=== PATIENT | female | born 1950 | race Caucasian/White ===

== ENCOUNTER 2016-07-12 23:29 | Emergency (ER) | payer OTHER ==
[~2016-07-12] VITALS: Ht 162.6 cm; Wt 113.0 kg
[~2016-07-12 23:29] MED LIST: ALBU1AER9 INH; AMT/50 PO; ATOR10TA82 PO; BENZ100C84 PO; CALCTAB5 PO; LEVO1TAB33 PO; LISI5TAB3 PO; MULT-506 PO; PRLSR20 PO; ZLF/50 PO
[2016-07-12 23:34] VITALS: BP 146/68; PULSE 75; TEMP 36.8; O2SAT 94; Ht 162.6 cm; Wt 113.0 kg
[2016-07-12] MEDS ORDERED: TRAMADOL HCL 50 MG TAB PO STA (23:46)
[2016-07-12] MEDS ORDERED: LSN5 PO (23:57)
[2016-07-12] MEDS ORDERED: VNTHFA/IN PO (23:57)
[2016-07-13] MEDS ORDERED: TRAM-10 PO (00:55)
[2016-07-13] MEDS ORDERED: NAPR-1169 PO (00:55)
--- NOTE | 2016-07-13 00:57 | EMERGENCY ROOM VISIT NOTE ---
ED Visit Note First contact with patient: 23:43 Chief Complaint: LEFT Knee Hurts, Hard to Walk History of Present Illness: Patient is a 65-year-old female who presents to the emergency Department by private vehicle with her significant other for evaluation of pain to the LEFT knee. She reports that she noticed pain after exiting her vehicle. She is uncertain if she twisted awkwardly or not. She reports immediate pain to the lateral surface of the knee. She reports no previous history of injury to the affected knee. She reports increasing pain with ambulation. She denies any numbness or tingling into the distal extremity. She rates her current discomfort as an 8/10. Patient denies any associated low back pain, hip pain, ankle pain, or foot pain. Medications: No current medications. Allergies: No known allergies. PMH: No pertinent past medical history. SHx: Patient is a 65-year-old female who lives locally. ROS: All pertinent positive and negative review of systems are appropriately documented in the History of Present Illness. Physical Exam: VITAL SIGNS - Vital signs and nursing notes were reviewed. GENERAL - 65-year-old female appearing her stated age and in noticeable discomfort throughout the exam. MUSCULOSKELETAL - LEFT knee without erythema, edema, and ecchymosis. Moderate tenderness to palpation appreciated over the lateral aspect of the LEFT Knee. +4 /5 strength appreciated LEFT versus right secondary to patient discomfort. No posterior sag sign. RANGE OF MOTION: Greater than 90 Flexion with 0 Extension. PATELLAR APPREHENSION TEST: Unremarkable. VARUS/VALGUS STRESS: Unremarkable. TRENA'S TEST: Without guarding. Strong Endpoint. NEUROLOGIC/VASCULAR - Neurovascularly intact distally with +3/5 dorsalis pedis pulses palpated bilaterally. Normal sensation to light and sharp touch appreciated distally. IMAGING: LEFT KNEE 3 VIEWS CLINICAL HISTORY: Left knee pain. FINDINGS: AP, crosstable lateral, and sunrise views of left knee are obtained. No prior studies are available for comparison at the time of dictation. The skeletal structures are osteopenic. No fracture is seen. There is mild tricompartmental degenerative joint space narrowing, greatest at the patellofemoral articulation. There are lateral marginal osteophytes and degenerative beaking of the tibial spine. No significant joint effusion is seen. Mild soft tissue swelling is present around the knee. There are foci of atherosclerotic calcification in the popliteal artery. IMPRESSION: 1. Soft tissue swelling with no radiographic evidence of fracture. 2. Osteopenia and degenerative change as above. ED Course: Patient was seen and evaluated by myself. Patient was provided one Ultram for their complaint of pain. X-rays were obtained of the affected knee. Imaging results as above. Images were discussed and reviewed with the patient who acknowledges understanding. Patient was provided a knee immobilizer and a walker for their comfort. Patient was provided Ultram and Naproxen for pain control at home. Patient educated on worrisome symptoms for return visit to the emergency department. Patient with follow-up with orthopedic surgery over the next few days as discussed. She will return for changing/worsening symptoms. Patient discharged home in good condition with her driving. Impression: LEFT Knee Sprain Discharge Instructions: You have been treated in the Emergency Department for a LEFT Knee Sprain. You have received pain medicine in the emergency department which impairs your ability to operate a vehicle. It is illegal for you to drive after receiving these medicines. You have been prescribed Ultram to be used for pain control. You cannot drive or consume alcohol while on this medicine. This medicine should only be used for pain that cannot be controlled with [id number] pain medicines. You have been prescribed Naprosyn (naproxen). This is an anti-inflammatory medication used to help decrease your symptoms and improve your pain. Please take this medication as prescribed. It is best to take this medication with food. Please to not take this antibiotic with other NSAIDS including: Ibuprofen , Advil, Motrin, Aspirin, Aleve, Celebrex, etc. For pain control, you can use the following [id number]-[id number] medicines (if >12 yo): - Regular strength (325mg/tab) Tylenol (acetaminophen) 2 tabs every 4-6 hours as needed. Do not exceed 12 tablets in a 24 hour period. Avoid taking more than 4 grams (4000 mg) of Tylenol per day. This includes any other sources of acetaminophen you may take on a regular basis. If this is a recent injury (<24 hrs), ice can be applied to the area of pain for the first 3 days to help decrease pain and inflammation. Ice massages can be performed by freezing water in a paper cup, peeling back the cup to expose the ice and then massaging over the affected area. You have been provided the number for an Orthopaedic Surgeon. You should call this number as soon as possible to establish a follow-up visit from today's Emergency Department visit. Keep the knee brace in place until cleared by Orthopedics. Use the walker you have been provided to keep ALL weight off of the knee until weight bearing is tolerable. Return to the Emergency Department if your current symptoms worsen despite treatment course outlined above. Problem List Medical Problems: (1) GERD (gastroesophageal reflux disease) Status: Chronic Current/Historical Medications Scheduled Amitriptyline HCl (Amitriptyline HCl), 50 MG PO HS Atorvastatin (Lipitor), 10 MG PO DAILY Lisinopril (Lisinopril), 5 MG PO DAILY Multivitamin (Multivitamin), 1 TAB PO DAILY Naproxen (Naprosyn), 500 MG PO BID Omeprazole (Prilosec), 20 MG PO BID Sertraline HCl (Sertraline HCl), 50 MG PO DAILY Scheduled PRN Albuterol Hfa (Ventolin Hfa), 2 PUFFS PO QID PRN for SOB/Wheezing Tramadol (Ultram), 1-2 TAB PO Q4H PRN for Pain Allergies Coded Allergies: No Known Allergies (Verified , 07/12/16) Vital Signs Date Time Temp Pulse Resp B/P Pulse Ox O2 Delivery O2 Flow Rate FiO2 07/12/16 23:34 36.8 75 18 146/68 94 Room Air Medications Administered Medications (Trade) Dose Ordered Sig/Sam Route Start Time Stop Time Status Last Admin Dose Admin Tramadol HCl (Ultram Tab) 50 mg ONE STAT PO 07/12/16 23:46 07/12/16 23:47 DC 07/12/16 23:58 50 MG Tramadol HCl (Ultram Home Pack) 1 homepack UD ONCE PO 07/13/16 01:00 07/13/16 01:01 DC 07/13/16 01:01 1 HOMEPACK Departure Information Impression Primary Impression: Sprain of knee Dispostion Home / Self-Care Condition GOOD Prescriptions Tramadol (Ultram) 50 Mg Tab 1-2 TAB PO Q4H Y for Pain, #16 TAB For Initial Treatment Prov: Kali Mena PA-C 07/13/16 Naproxen (Naprosyn) 500 Mg Tab 500 MG PO BID for 7 Days, #14 TAB Prov: Kali Mena PA-C 07/13/16 Referrals Joselyn Marques D.O. (PCP) Patient Instructions ED Sprain Knee Collateral Ligaments, My [facility] Additional Instructions You have been treated in the Emergency Department for a LEFT Knee Sprain. You have received pain medicine in the emergency department which impairs your ability to operate a vehicle. It is illegal for you to drive after receiving these medicines. You have been prescribed Ultram to be used for pain control. You cannot drive or consume alcohol while on this medicine. This medicine should only be used for pain that cannot be controlled with [id number]-vpy-[id number] pain medicines. You have been prescribed Naprosyn (naproxen). This is an anti-inflammatory medication used to help decrease your symptoms and improve your pain. Please take this medication as prescribed. It is best to take this medication with food. Please to not take this antibiotic with other NSAIDS including: Ibuprofen , Advil, Motrin, Aspirin, Aleve, Celebrex, etc. For pain control, you can use the following mcnc-kcv-ywhocwn medicines (if >12 yo): - Regular strength (325mg/tab) Tylenol (acetaminophen) 2 tabs every 4-6 hours as needed. Do not exceed 12 tablets in a 24 hour period. Avoid taking more than 4 grams (4000 mg) of Tylenol per day. This includes any other sources of acetaminophen you may take on a regular basis. If this is a recent injury (<24 hrs), ice can be applied to the area of pain for the first 3 days to help decrease pain and inflammation. Ice massages can be performed by freezing water in a paper cup, peeling back the cup to expose the ice and then massaging over the affected area. You have been provided the number for an Orthopaedic Surgeon. You should call this number as soon as possible to establish a follow-up visit from today's Emergency Department visit. Keep the knee brace in place until cleared by Orthopedics. Use the walker you have been provided to keep ALL weight off of the knee until weight bearing is tolerable. Return to the Emergency Department if your current symptoms worsen despite treatment course outlined above. Problem Qualifiers Primary Impression: Sprain of knee Encounter type: initial encounter Involved ligament of knee: medial collateral ligament Laterality: left Qualified Codes: S83.412A - Sprain of medial collateral ligament of left knee, initial encounter
[2016-07-13] MEDS ORDERED: TRAMADOL HCL 50 MG HOME PACK PO ONE (01:00)
--- NOTE | 2016-07-13 07:33 | DIAGNOSTIC IMAGING REPORT ---
LEFT KNEE 3 VIEWS CLINICAL HISTORY: Left knee pain. FINDINGS: AP, crosstable lateral, and sunrise views of left knee are obtained. No prior studies are available for comparison at the time of dictation. The skeletal structures are osteopenic. No fracture is seen. There is mild tricompartmental degenerative joint space narrowing, greatest at the patellofemoral articulation. There are lateral marginal osteophytes and degenerative beaking of the tibial spine. No significant joint effusion is seen. Mild soft tissue swelling is present around the knee. There are foci of atherosclerotic calcification in the popliteal artery. IMPRESSION: 1. Soft tissue swelling with no radiographic evidence of fracture. 2. Osteopenia and degenerative change as above. Electronically signed by: Kev Dean M.D. 07/13/2016 7:31 AM Dictated Date/Time: 07/13/2016 7:30 AM
== END 2016-07-13 01:07 | disposition home or self-care (01) ==
LOC: C.EDB 23:31 → C.EDC 07-13 01:07
DX: S83.92XA Sprain of unspecified site of left knee, initial encounter (principal); X58.XXXA Exposure to other specified factors, initial encounter; K21.9 Gastro-esophageal reflux disease without esophagitis; Z79.899 Other long term (current) drug therapy

== ENCOUNTER 2016-08-19 07:39 | Emergency (ER) | payer OTHER ==
[~2016-08-19] VITALS: Ht 162.6 cm; Wt 89.6 kg
[~2016-08-19 07:39] MED LIST changes: -ALBU1AER9 INH; -BENZ100C84 PO; -CALCTAB5 PO; -LEVO1TAB33 PO; -LISI5TAB3 PO; +LSN5 PO; +TRAM-10 PO; +VNTHFA/IN PO
[2016-08-19 07:49] VITALS: TEMP 36.6; Ht 162.6 cm; Wt 89.6 kg
[2016-08-19] MEDS ORDERED: TRAM-10 PO (08:10)
[2016-08-19 08:15] VITALS: O2SAT 94
[2016-08-19 08:45] LABS: BASO % 0.3 %; BASO ABS # 0.03 K/uL (0-0.2); COMPLETE YES; EOS % 1.4 %; HEMATOCRIT 41.9 % (37-47); IG% 0.3 %; LYMPH % 11.7 %; LYMPH ABS # 1.35 K/uL (1.2-3.4); MEAN CELL VOLUME 88.4 fL (80-100); MEAN CORPUSCULAR HEMOGLOBIN 28.9 pg (25-34); MEAN CORPUSCULAR HGB CONC 32.7 g/dl (32-36); MEAN PLATELET VOLUME 9.7 fL (7.4-10.4); MONO % 7.4 %; NEUT % 78.9 %; PLATELET COUNT 260 K/uL (130-400); RED BLOOD COUNT 4.74 M/uL (4.2-5.4); WHITE BLOOD COUNT 11.55 K/uL (4.8-10.8)
[2016-08-19 08:53] LABS: URINE APPEARANCE CLEAR (CLEAR); URINE BILIRUBIN NEG (NEG); URINE COLOR YELLOW; URINE EPITHELIAL CELL AUTO >30 /lpf (0-5); URINE NITRITE NEG (NEG); URINE SPECIFIC GRAVITY 1.018 (1.000-1.030); UROBILINOGEN NEG (NEG); ZZUR CULT IF INDIC CLEAN CATCH NO
[2016-08-19 09:02] LABS: BUN/CREATININE RATIO 25.1 (10-20); CREATININE 0.51 mg/dl (0.60-1.20)
[2016-08-19 09:06] LABS: MANUAL MICROSCOPIC REQUIRED? NO; REVIEW REQ? NO
[2016-08-19 09:17] LABS: CALCIUM 8.6 mg/dl (8.5-10.1)
--- NOTE | 2016-08-19 09:21 | DIAGNOSTIC IMAGING REPORT ---
LEFT RIBS UNILATERAL WITH PA CHEST CLINICAL HISTORY: Left anterior/inferior rib pain pain COMPARISON STUDY: None FINDINGS: Negative left ribs. Negative chest. No evidence pneumothorax. Lungs are clear. IMPRESSION: Negative study Electronically signed by: Luis E Brown M.D. 08/19/2016 9:20 AM Dictated Date/Time: 08/19/2016 9:19 AM
[2016-08-19] MEDS ORDERED: OPTIRAY 320 IV PRN (11:00)
[2016-08-19] MEDS ORDERED: MoRPHine SULFATE 4 MG/ML 1 ML CARP\\VIAL IV STA (11:35)
[2016-08-19] MEDS ORDERED: ONDANSETRON INJ 2 MG/ML 2 ML VIAL IV STA (11:36)
[2016-08-19] MEDS ORDERED: ONDANSETRON INJ 2 MG/ML 2 ML VIAL ONE (11:50)
--- NOTE | 2016-08-19 11:50 | DIAGNOSTIC IMAGING REPORT ---
CHEST CTA for PULMONARY ARTERIES CT DOSE: 858.06 mGy.cm HISTORY: Chest pain rib pain TECHNIQUE: Multiaxial CT images of the chest were performed following the intravenous administration of contrast to evaluate the pulmonary arteries. Maximal intensity projection images were also obtained. COMPARISON STUDY: None. FINDINGS: There is a normal caliber thoracic aorta with no evidence for dissection. There is no evidence for pulmonary embolus. No pleural effusions. No pneumothorax. The liver and spleen are unremarkable. No mediastinal or hilar lymphadenopathy. The central airways are patent. The lungs are clear. Minimal scattered atelectatic changes throughout both hemithoraces. IMPRESSION: No evidence for pulmonary embolus. Minimal scattered atelectatic changes throughout both hemithoraces. Lungs otherwise are clear. Electronically signed by: Luis E Brown M.D. 08/19/2016 11:49 AM Dictated Date/Time: 08/19/2016 11:48 AM
--- NOTE | 2016-08-19 11:54 | DIAGNOSTIC IMAGING REPORT ---
CT abdomen ABD WITH IV CONTRAST ONLY (CT) CLINICAL HISTORY: Left chest pain dyspnea TECHNIQUE: Transaxial acquisition with multi axial reformatted images. COMPARISON STUDY: None FINDINGS: Minimal bibasilar atelectasis. Liver spleen and pancreas are uniform. Kidneys negative for hydronephrosis. Moderate atherosclerotic change abdominal aorta. Mild hyperplastic changes the adrenal glands. 2.5 cm right renal cyst. Gallbladder is negative for distention. Bowel pattern is nonobstructive. IMPRESSION: No acute process of the abdomen. Electronically signed by: Luis E Brown M.D. 08/19/2016 11:53 AM Dictated Date/Time: 08/19/2016 11:49 AM
[2016-08-19] MEDS ORDERED: METH4PAK PO (12:33)
--- NOTE | 2016-08-19 12:34 | EMERGENCY ROOM VISIT NOTE ---
History First contact with patient: 07:55 Chief Complaint: ABDOMINAL PAIN Stated Complaint: ABDOMINAL PAIN, SOB History of Present Illness The patient is a 65 year old female who presents to the Emergency Room via private vehicle with complaints of "abdominal pain, shortness of breath". The patient states that Sunday she woke up with pain under her left breast, which is worse with movement and deep inspiration. There is associated shortness of breath, and the patient does smoke tobacco. She rates the pain as a 6-7/10. She describes the pain as sharp in nature.She notes the pain is worse with touching the region. She denies having this before, history of blood clots or heart troubles. She denies any chest pain. She denies any urinary symptoms, blood in the urine or blood in the stool. Review of Systems A complete 10-point Review of Systems was discussed with the patient, with pertinent positives and negatives listed in the History of Present Illness. All remaining Review of Systems questions can be considered negative unless otherwise specified. Past Medical/Surgical History Medical Problems: (1) GERD (gastroesophageal reflux disease) Family History Blood clots. Social History Smoking Status: Current Every Day Smoker Marital Status: Housing Status: lives alone Occupation Status: employed Current/Historical Medications Scheduled Amitriptyline HCl (Amitriptyline HCl), 50 MG PO HS Atorvastatin (Lipitor), 10 MG PO DAILY Lisinopril (Lisinopril), 5 MG PO DAILY Methylprednisolone (Medrol Dosepak), 0 PO DAILY Multivitamin (Multivitamin), 1 TAB PO DAILY Omeprazole (Prilosec), 20 MG PO BID Sertraline HCl (Sertraline HCl), 50 MG PO DAILY Scheduled PRN Albuterol Hfa (Ventolin Hfa), 2 PUFFS PO QID PRN for SOB/Wheezing Tramadol (Ultram), 50-100 MG PO Q4H PRN for Pain Allergies Coded Allergies: No Known Allergies (Verified , 08/19/16) Physical Exam Vital Signs Date Time Temp Pulse Resp B/P Pulse Ox O2 Delivery O2 Flow Rate FiO2 08/19/16 12:43 65 22 141/89 90 Room Air 08/19/16 12:33 63 08/19/16 11:53 62 18 145/74 92 Room Air 08/19/16 09:56 65 20 146/66 94 Room Air 08/19/16 08:21 66 08/19/16 08:15 94 08/19/16 07:49 36.6 70 22 155/77 94 Room Air Physical Exam VITAL SIGNS - Vital signs and nursing notes were reviewed. Afebrile, non- tachycardic, slightly hypertensive at 155/77 in the saturating well on room air 94%. GENERAL -65-year-old female appearing her stated age who is in no acute distress. Communicates well with provider and answers questions appropriately. SKIN - Without rashes. The skin overlying the left anterior inferior ribs is unremarkable. No evidence of herpes zoster. HEAD - NC/AT. EYES - PERRL with EOMI bilaterally. Sclera anicteric. Palpebral conjunctiva pink and moist with no injection noted. EARS - No deformities of external structures noted on gross examination bilaterally. NOSE - Midline and without cyanosis. No epistaxis or purulent drainage noted. Septum midline without deviation or septal hematoma noted. MOUTH/OROPHARYNX - Without perioral cyanosis. Buccal mucosa pink and moist and without leukoplakia. Tongue midline with equal elevation of palate bilaterally. No tonsillar hypertrophy, erythema, or exudates noted. Fair dentition noted. NECK - Neck with FROM. Supple to palpation. No lymphadenopathy noted. No nuchal rigidity. LUNGS - Chest wall symmetric without accessory muscle use, intercostals retractions, or central cyanosis. Normal vesicular breath sounds CTA B/L. No wheezes, rales, or rhonchi appreciated. There is exquisite tenderness to palpation overlying the left anterior rib cage just under the left breast. CARDIAC - RRR with S1/S2. No murmur, rubs, or gallops appreciated. ABDOMEN - Abdominal contour without pulsations or visible masses. BS normoactive all four quadrants. No tenderness, palpable masses, hepatosplenomegaly, or ascites noted. EXTREMITIES - No clubbing or peripheral cyanosis. No pretibial edema present. +5 /5 strength noted in UE/LE bilaterally. NEUROLOGIC - Cranial nerves II through XII grossly intact PSYCH - Pt is very pleasant and interacts well with examiner. Medical Decision & Procedures ER Provider Diagnostic Interpretation: LEFT RIBS UNILATERAL WITH PA CHEST CLINICAL HISTORY: Left anterior/inferior rib pain pain COMPARISON STUDY: None FINDINGS: Negative left ribs. Negative chest. No evidence pneumothorax. Lungs are clear. IMPRESSION: Negative study Electronically signed by: Luis E Brown M.D. 08/19/2016 9:20 AM Dictated Date/Time: 08/19/2016 9:19 AM CHEST CTA for PULMONARY ARTERIES CT DOSE: 858.06 mGy.cm HISTORY: Chest pain rib pain TECHNIQUE: Multiaxial CT images of the chest were performed following the intravenous administration of contrast to evaluate the pulmonary arteries. Maximal intensity projection images were also obtained. COMPARISON STUDY: None. FINDINGS: There is a normal caliber thoracic aorta with no evidence for dissection. There is no evidence for pulmonary embolus. No pleural effusions. No pneumothorax. The liver and spleen are unremarkable. No mediastinal or hilar lymphadenopathy. The central airways are patent. The lungs are clear. Minimal scattered atelectatic changes throughout both hemithoraces. IMPRESSION: No evidence for pulmonary embolus. Minimal scattered atelectatic changes throughout both hemithoraces. Lungs otherwise are clear. Electronically signed by: LuisE Brown M.D. 08/19/2016 11:49 AM Dictated Date/Time: 08/19/2016 11:[address] abdomen ABD WITH IV CONTRAST ONLY (CT) CLINICAL HISTORY: Left chest pain dyspnea TECHNIQUE: Transaxial acquisition with multi axial reformatted images. COMPARISON STUDY: None FINDINGS: Minimal bibasilar atelectasis. Liver spleen and pancreas are uniform. Kidneys negative for hydronephrosis. Moderate atherosclerotic change abdominal aorta. Mild hyperplastic changes the adrenal glands. 2.5 cm right renal cyst. Gallbladder is negative for distention. Bowel pattern is nonobstructive. IMPRESSION: No acute process of the abdomen. Electronically signed by: Luis E Brown M.D. 08/19/2016 11:53 AM Dictated Date/Time: 08/19/2016 11:49 AM Laboratory Results 08/19/16 08:18 Red Blood Count 4.74, Mean Corpuscular Volume 88.4, Mean Corpuscular Hemoglobin 28.9, Mean Corpuscular Hemoglobin Concent 32.7, Mean Platelet Volume 9.7, Neutrophils (%) (Auto) 78.9, Lymphocytes (%) (Auto) 11.7, Monocytes (%) (Auto) 7.4, Eosinophils (%) (Auto) 1.4, Basophils (%) (Auto) 0.3, Neutrophils # (Auto) 9.13, Lymphocytes # (Auto) 1.35, Monocytes # (Auto) 0.85, Eosinophils # (Auto) 0.16, Basophils # (Auto) 0.03 08/19/16 08:18 Test 08/19/16 08:18 08/19/16 08:28 08/19/16 10:12 White Blood Count 11.55 K/uL (4.8-10.8) Red Blood Count 4.74 M/uL (4.2-5.4) Hemoglobin 13.7 g/dL (12.0-16.0) Hematocrit 41.9 % (37-47) Mean Corpuscular Volume 88.4 fL (80-100) Mean Corpuscular Hemoglobin 28.9 pg (25-34) Mean Corpuscular Hemoglobin Concent 32.7 g/dl (32-36) Platelet Count 260 K/uL (130-400) Mean Platelet Volume 9.7 fL (7.4-10.4) Neutrophils (%) (Auto) 78.9 % Lymphocytes (%) (Auto) 11.7 % Monocytes (%) (Auto) 7.4 % Eosinophils (%) (Auto) 1.4 % Basophils (%) (Auto) 0.3 % Neutrophils # (Auto) 9.13 K/uL (1.4-6.5) Lymphocytes # (Auto) 1.35 K/uL (1.2-3.4) Monocytes # (Auto) 0.85 K/uL (0.11-0.59) Eosinophils # (Auto) 0.16 K/uL (0-0.5) Basophils # (Auto) 0.03 K/uL (0-0.2) RDW Standard Deviation 45.2 fL (36.4-46.3) RDW Coefficient of Variation 13.8 % (11.5-14.5) Immature Granulocyte % (Auto) 0.3 % Immature Granulocyte # (Auto) 0.03 K/uL (0.00-0.02) Urine Color YELLOW Urine Appearance CLEAR (CLEAR) Urine pH 7.0 (4.5-7.5) Urine Specific [place] 1.018 (1.000-1.030) Urine Protein NEG (NEG) Urine Glucose (UA) NEG (NEG) Urine Ketones NEG (NEG) Urine Occult Blood NEG (NEG) Urine Nitrite NEG (NEG) Urine Bilirubin NEG (NEG) Urine Urobilinogen NEG (NEG) Urine Leukocyte Esterase SMALL (NEG) Urine WBC (Auto) 1-5 /hpf (0-5) Urine RBC (Auto) 0-4 /hpf (0-4) Urine Hyaline Casts (Auto) 0 /lpf (0-5) Urine Epithelial Cells (Auto) >30 /lpf (0-5) Urine Bacteria (Auto) NEG (NEG) Anion Gap 4.0 mmol/L (3-11) Est Creatinine Clear Calc Drug Dose 120.8 ml/min Estimated GFR () 117.8 Estimated GFR (Non- 101.6 BUN/Creatinine Ratio 25.1 (10-20) Calcium Level 8.6 mg/dl (8.5-10.1) Total Bilirubin 0.5 mg/dl (0.2-1) Aspartate Amino Transf (AST/SGOT) 14 U/L (15-37) Alanine Aminotransferase (ALT/SGPT) 22 U/L (12-78) Alkaline Phosphatase 90 U/L (45-117) Total Protein 6.7 gm/dl (6.4-8.2) Albumin 3.4 gm/dl (3.4-5.0) Globulin 3.3 gm/dl (2.5-4.0) Albumin/Globulin Ratio 1.0 (0.9-2) Lipase 104 U/L (73-393) Bedside Troponin I 0.000 ng/ml (0-0.045) Bedside D-Dimer 447 ng/mlFEU (0-450) Medications Administered Medications (Trade) Dose Ordered Sig/Sam Route Start Time Stop Time Status Last Admin Dose Admin Morphine Sulfate (MoRPHine SULFATE INJ) 4 mg NOW STAT IV 08/19/16 11:35 08/19/16 11:36 DC 08/19/16 11:53 4 MG Ondansetron HCl (Zofran Inj) 4 mg NOW STAT IV 08/19/16 11:36 08/19/16 11:37 DC 08/19/16 11:53 4 MG Medical Decision Patient was seen and evaluated as above. After obtaining a thorough history and physical examination there is concern for cardiac, pulmonary as well as skeletal muscular causes. Patient present with reproducible left anterior inferior rib pain which is worse with movement. I do suspect skeletal pain/ pleurisy however cannot completely rule out emergent causes therefore the above workup was initiated. IV access was established. Her white blood cell count is 11.55, no anemia. D-dimer near positive at 447, chloride high at 108, creatinine low 0.51, AST low at 14. Troponin is 0.000. EKG reveals normal sinus rhythm, no ectopy or ischemic change noted. Urinalysis unremarkable for acute process. Chest x-ray with rib series unremarkable for acute process. At this time I do believe that it is important to pursue a CT scan contrasted for PE. This was negative for PE, abdomen negative for acute process as well. She was given morphine and Zofran for her pain. I suspect the patient is experiencing pleurisy, or potentially a crack cartilage. At this time I do not suspect any emergent cause. For any potential pleurisy she will be provided with a Medrol Dosepak, and instructed to take anti-inflammatories such as ibuprofen with food. She was educated upon the importance of follow-up with her family doctor. Importance of follow-up for the incidental findings of which she was thoroughly educated upon, educated upon worrisome symptoms which to return, and had questions prior to discharge. She is to call her family doctor first thing Sunday morning to schedule follow-up. In evaluation treatment of this patient following differential diagnoses were entertained: Pleurisy, cartilage cracked, rib fracture, rib contusion, hemothorax, pneumothorax, pericarditis, [place], PE, among others. Impression Primary Impression: Pleurisy Additional Impression: left anterior rib pain Departure Information Dispostion Home / Self-Care Condition GOOD Prescriptions Methylprednisolone (MEDROL DOSEPAK) 4 Mg [place] 0 PO DAILY, #1 PKT Prov: Ramana Tripp PA-C 08/19/16 Referrals Joselyn Marques D.O. (PCP) Patient Instructions My [facility] Additional Instructions You have been treated in the Emergency Department for Rib pain/pleurisy. You have received pain medicine in the emergency department which impairs your ability to operate a vehicle. It is illegal for you to drive after receiving these medicines. You have been prescribed a Medrol Dosepak. Take this medication as prescribed. You should take the COMPLETE 6-day course of this medication. This is an anti- inflammatory medicine that will help to minimize your symptoms. For pain control, you can use the following [id number] medicines (if >12 yo): - Regular strength (325mg/tab) Tylenol (acetaminophen) 2 tabs every 4-6 hours as needed. Do not exceed 12 tablets in a 24 hour period. Avoid taking more than 3 grams (3000 mg) of Tylenol per day. This includes any other sources of acetaminophen you may take on a regular basis. - Regular strength (200 mg/tab) Advil (ibuprofen) 1-2 tabs every 4-6 hours as needed. Do not exceed a dose of 3200 mg per day. If this is an acute injury, ice can be applied to the area of pain for the first 3 days to help decrease pain and inflammation. After the first 3 days, a heating pad can be used over the area for continued soothing relief. To minimize your discomfort, you can hug a pillow while coughing or sneezing. Additionally, you should continue to force yourself to take nice, deep breaths. Full expansion of the lungs is necessary to prevent the accumulation of fluid in the lung tissue and development of pneumonia. You should schedule a follow-up appointment in 2-3 days with your Primary Care Provider for further evaluation and treatment of your rib pain. Return to the Emergency Department if your current symptoms worsen despite treatment course outlined above, or if you develop any of the following symptoms : intractable pain despite aforementioned treatment course, development of a wet cough, bloody cough, fever, chills, or increased shortness of breath. Please return to the emergency department with any new/concerning symptoms. Problem Qualifiers
[2016-08-19 12:43] VITALS: BP 141/89; PULSE 65; O2SAT 90
== END 2016-08-19 13:13 | disposition home or self-care (01) ==
LOC: C.EDB 07:40
DX: R09.1 Pleurisy (principal); R07.81 Pleurodynia; R10.9 Unspecified abdominal pain; R06.02 Shortness of breath; K21.9 Gastro-esophageal reflux disease without esophagitis; Z79.899 Other long term (current) drug therapy; Z84.89 Family history of other specified conditions

== ENCOUNTER → 2016-10-11 | Outpatient (CLI) | payer SELFPAY ==
[~2016-10-11] MED LIST changes: -ATOR10TA82 PO; +ATOR10TA88 PO
--- NOTE | 2016-10-11 13:05 | MAMMOGRAPHY REPORT ---
BILATERAL DIGITAL SCREENING MAMMOGRAM WITH CAD: 10/11/2016 CLINICAL HISTORY: Routine screening. TECHNIQUE: Current study was also evaluated with a Computer Aided Detection (CAD) system. Bilateral CC and MLO views were obtained. COMPARISON: Comparison is made to exams dated: 10/11/2015 mammogram, 10/08/2014 mammogram, 10/07/2013 m ammogram, 09/30/2012 mammogram, 09/28/2011 mammogram, and 09/26/2010 mammogram - [facility] enter. BREAST COMPOSITION: The tissue of both breasts is almost entirely fatty. FINDINGS: No suspicious masses, calcifications, or areas of architectural distortion are noted in ei ther breast. There has been no significant interval change compared to prior exams. IMPRESSION: ACR BI-RADS CATEGORY 1: NEGATIVE There is no mammographic evidence of malignancy. A 1 year screening mammogram is recommended. The pa tient will receive written notification of the results. Approximately 10% of breast cancers are not detected with mammography. A negative mammographic report should not delay biopsy if a clinically suggestive mass is present. Ashia Lyles M.D. ah/:10/11/2016 10:28:41 Business Management Professor: Lynsey VAZ(R)(M), [facility] letter sent: Normal 1/2 BI-RADS Code: ACR BI-RADS Category 1: Negative
== END | disposition home or self-care (01) ==
LOC: C.MAMM 10:12
PROVIDERS: ATTEND Student in an Organized Health Care Education/Training Program
DX: Z12.31 Encounter for screening mammogram for malignant neoplasm of breast (principal)

== ENCOUNTER 2017-11-24 15:45 | Emergency (ER) | payer OTHER ==
[~2017-11-24] VITALS: Ht 162.6 cm; Wt 89.1 kg
[~2017-11-24 15:45] MED LIST changes: +ATOR10TA82 PO; -ATOR10TA88 PO; +LISI-730 PO; -LSN5 PO
[2017-11-24 15:49] VITALS: TEMP 36.8; Ht 162.6 cm; Wt 89.1 kg
[2017-11-24] MEDS ORDERED: LIDOCAINE/EPINEPHRINE 1% 20 ML VIAL INFIL STA (16:08)
--- NOTE | 2017-11-24 16:11 | EMERGENCY ROOM VISIT NOTE ---
ED Visit Note First contact with patient: 16:03 Chief Complaint: "Cut on right leg". History of Present Illness: This patient is a 67-year-old female who presents to the Emergency Department via private vehicle for evaluation of their right posterior calf laceration. Patient sustained the laceration while at work, when a plate that was broken was placed in a trash bag and the broken piece poked through the bag, cut through her pants and into her right calf. She is unsure if her tetanus is up-to-date.. They report a moderate amount of bleeding initially. They deny any numbness or tingling into the distal extremity. Patient rates her current discomfort as a 2/10. Medications: As noted below Allergies: None PMH: No pertinent. SHx: Patient is employed and lives locally ROS: All pertinent positive and negative review of systems are appropriately documented in the History of Present Illness. Physical Exam: VITAL SIGNS - Vital signs and nursing notes were reviewed. Stable. GENERAL -67-year-old female appearing her stated age who is in no acute distress. Communicates well with provider and answers questions appropriately. SKIN - There is a 4 cm long laceration noted posterior right calf in the transverse plane. The edges gape apart with traction. No foreign bodies appreciated. Upon further examination there are no deep structures including vessel, tendon, or bony structures appreciated. There is no active bleeding noted. MUSCULOSKELETAL -full range of motion of the patient's right lower extremity noted. There is no calf tenderness. No evidence of foreign body NEUROLOGIC - Spinothalamic tract was found to be intact with ability to discriminate sharp versus dull sensation. No sensory defects of the dorsal column were appreciated utilizing light touch for evaluation. VASCULAR - Capillary refill was brisk. ED Course: Patient was seen and evaluated by myself. Risks and benefits of performing primary wound closure versus no repair were discussed with the patient who verbalizes understanding. Verbal consent was obtained prior to performing the procedure. 4 cc of 1% buffered lidocaine with epinephrine was used to anesthetize the leg laceration. The wound was cleansed and prepped in the typical sterile fashion utilizing normal saline and Betadine. The wound was sterilely draped. Once proper anesthetization was established, the wound was further examined and demonstrated no deep involvement. The wound was copiously irrigated with normal saline and Betadine. The wound was closed using 7 simple, 4-0 nylon sutures with the wound edges being well approximated. Patient tolerated the procedure well. No complications were met. The wound was cleansed and dressed with a Bacitracin dressing. She was updated on her tetanus immunization as the medical record for the patient at the family doctor's office indicates that she last had hers in 2007, therefore believe it is appropriate to update today. Patient educated on worrisome symptoms for return visit to the Emergency Department. Patient discharged to home in good condition. Problem List Medical Problems: (1) GERD (gastroesophageal reflux disease) Status: Chronic Current/Historical Medications Scheduled Amitriptyline HCl (Amitriptyline HCl), 50 MG PO HS Atorvastatin (Lipitor), 10 MG PO DAILY Lisinopril (Lisinopril), 5 MG PO DAILY Multivitamin (Multivitamin), 1 TAB PO DAILY Omeprazole (Prilosec), 20 MG PO BID Sertraline HCl (Sertraline HCl), 50 MG PO DAILY Scheduled PRN Albuterol Hfa (Ventolin Hfa), 2 PUFFS PO QID PRN for SOB/Wheezing Tramadol (Ultram), 50-100 MG PO Q4H PRN for Pain Allergies Coded Allergies: No Known Allergies (Verified , 08/19/16) Vital Signs Date Time Temp Pulse Resp B/P (MAP) Pulse Ox O2 Delivery O2 Flow Rate FiO2 11/24/17 16:55 90 19 138/71 93 Room Air 11/24/17 15:49 36.8 98 20 151/76 94 Room Air Medications Administered Medications (Trade) Dose Ordered Sig/Sam Route Start Time Stop Time Status Last Admin Dose Admin Lidocaine/ Epinephrine (Xylocaine/Epine 1% Inj) 20 ml ONE STAT INFIL 11/24/17 16:08 11/24/17 16:09 DC 11/24/17 16:43 20 ML Diphtheria/ Pertussis/Tetanus Vacc (Adacel Inj) 0.5 ml ONCE ONCE IM. 11/24/17 16:15 11/24/17 16:16 DC 11/24/17 16:45 0.5 ML Departure Information Impression Primary Impression: Laceration Dispostion Home / Self-Care Condition GOOD Referrals Joselyn Marques D.O. (PCP) Patient Instructions My [facility] Additional Instructions Discharge Instructions: You have received 7 sutures on your leg. These sutures are NOT dissolvable and WILL need to be removed by a health care provider in 10-12 days. You can return to the Emergency Department or contact your Primary Care Provider to have the sutures removed. Proper wound care is essential for adequate wound healing and infection prevention. You can shower and clean the wound with soap and water. Do not scour over the wound, pat dry with a towel. Do not submerse the wound (i.e. bathe or dish wash) until the sutures have been removed. You can use an antibiotic ointment with a dressing over the wound for the next 3-4 days. After this time you may leave the wound dry and open to the air. If crust develops over the wound you can use a Q-tip to apply a 1:1 peroxide:water solution to clean the wound. Look for signs of infection of the wound including: increased pain, swelling, foul discharge, streaking, or increased temperature. If any of these are noticed you should return to the Emergency Department for further assessment and treatment. As with any laceration you may have received nerve damage to the surrounding tissues. This damage may or may not be permanent. You should keep the area covered with sunscreen for the first 6 months to 1 year when at risk for exposure to help minimize scarring. You can also use scar reducing creams or silicone-based scar away cream as directed on the package. For pain control, you can use the following [id number] medicines (if >12 yo): - Regular strength (325mg/tab) Tylenol (acetaminophen) 2 tabs every 4-6 hours as needed. Do not exceed 12 tablets in a 24 hour period. Avoid taking more than 3 grams (3000 mg) of Tylenol per day. This includes any other sources of acetaminophen you may take on a regular basis. - Regular strength (200 mg/tab) Advil (ibuprofen) 1-2 tabs every 4-6 hours as needed. Do not exceed a dose of 3200 mg per day. Return to the emergency department if your symptoms worsen despite treatment course outlined above.
[2017-11-24] MEDS ORDERED: DIPHTHERIA/TETANUS/PERTUSSIS 0.5 ML SYR/VIAL IM. ONE (16:15)
[2017-11-24 16:55] VITALS: BP 138/71; PULSE 90; O2SAT 93
== END 2017-11-24 16:57 | disposition home or self-care (01) ==
LOC: C.EDB 15:47 → C.EDD 16:57
DX: S81.811A Laceration without foreign body, right lower leg, initial encounter (principal); W25.XXXA Contact with sharp glass, initial encounter; Y99.0 Civilian activity done for income or pay; Z79.899 Other long term (current) drug therapy; Z23 Encounter for immunization

== ENCOUNTER 2018-06-15 13:33 | Observation (INO) ==
[2018-06-15 14:02] LABS: Basophils # (auto) 0.02 K/uL (0-0.2); Basophils % (auto) 0.2 %; Eosinophils # (auto) 0.14 K/uL (0-0.5); Eosinophils % (auto) 1.3 %; Hematocrit (blood only) 40.1 % (37-47); Hemoglobin 13.5 g/dL (12.0-16.0); Immature Granulocytes # (auto) 0.03 K/uL (0.00-0.02); Immature Granulocytes % (auto) 0.3 %; Lymphocytes # (auto) 1.86 K/uL (1.2-3.4); Lymphocytes % (auto) 17.4 %; Mean Corpuscular Hgb Conc 33.7 g/dL (32-36); Mean Corpuscular Volume 88.9 fL (80-100); Mean Platelet Volume 10.3 fL (7.4-10.4); Monocytes # (auto) 0.66 K/uL (0.11-0.59); Monocytes % (auto) 6.2 %; Neutrophils # (auto) 7.95 K/uL (1.4-6.5); Neutrophils % (auto) 74.6 %; Platelet Count 275 K/uL (130-400); RDW Standard Deviation 45.4 fL (36.4-46.3); Red Blood Count 4.51 M/uL (4.2-5.4); White Blood Count 10.66 K/uL (4.8-10.8)
--- NOTE | 2018-06-15 14:03 | XRay Report ---
XR chest 1V portable CLINICAL HISTORY: Chest Pain dyspnea COMPARISON STUDY: 08/19/2016 FINDINGS: The bones soft tissues and hemidiaphragms are normal. The cardiomediastinal silhouette is n ormal. The lungs are clear. The pulmonary vasculature is normal. IMPRESSION: Negative chest. The above report was generated using voice recognition software. It may contain grammatical, syntax or spelling errors. Electronically signed by: Luis E Brown M.D. 06/15/2018 2:02 PM
[2018-06-15 14:08] LABS: Alanine Aminotransferase 21 U/L (12-78); Albumin Level 3.5 gm/dl (3.4-5.0); Aspartate Aminotransferase 16 U/L (15-37); BUN Creatinine Ratio 17.5 (10-20); Blood Urea Nitrogen 13 mg/dl (7-18); Calcium 8.4 mg/dl (8.5-10.1); Carbon Dioxide 21 mmol/L (21-32); Chloride 106 mmol/L (98-107); Creatinine Clr Calc Pharmacy 81.2 ml/min; Est GFR (African American) 101.1; Est GFR (Non-African American) 87.3; Glucose 160 mg/dl (70-99); Potassium 3.5 mmol/L (3.5-5.1); Sodium 138 mmol/L (136-145)
[2018-06-15 14:13] LABS: Albumin Globulin Ratio 1.2 (0.9-2); Alkaline Phosphatase 94 U/L (45-117); Bilirubin,Total 0.5 mg/dl (0.2-1); Total Protein 6.5 gm/dl (6.4-8.2); Troponin I < 0.015 ng/ml (0-0.045)
[2018-06-15] MEDS ORDERED: ACETAMINOPHEN 325 MG TAB PO STA (15:22)
[2018-06-15] MEDS ORDERED: ACETAMINOPHEN 325 MG TAB ONE (15:37)
[2018-06-15 16:35] LABS: D Dimer 390 ug/L FEU (0-500)
[2018-06-15] MEDS ORDERED: DEXTROSE 50% 50 ML SYRINGE IV PRN (16:54)
[2018-06-15] MEDS ORDERED: CARBOHYDRATES FOR HYPOGLYCEMIA PO PRN (16:54)
[2018-06-15] MEDS ORDERED: ACETAMINOPHEN 325 MG TAB PO PRN (16:54)
[2018-06-15] MEDS ORDERED: GLUCOSE 40% GEL 15 GM TUBE PO PRN (16:54)
[2018-06-15] MEDS ORDERED: GLUCAGON FOR INJ 1 MG VIAL SQ PRN (16:54)
[2018-06-15] MEDS ORDERED: GLUCOSE 10 TABS/TUBE PO PRN (16:54)
[2018-06-15] MEDS ORDERED: NITROGLYCERIN SL 0.4 MG/TAB TAB SL PRN (16:54)
--- NOTE | 2018-06-15 16:56 | History & Physical Report ---
Date of Service June 15, 2018 Assessment & Plan (1) Precordial chest pain: Pt presented with reported anterior chest pressure this morning and increased anterior CP with radiation to L neck with SOB, diaphoresis and nauesa today while moving cribs. Received ASA, nitro x 1 and zofran by EMS with resolution of CP. No further CP while in ER. In ER vitals stable, afebrile, no leukocytosis. negative initial troponin. CXR: no acute changes. EKG NSR, chronic T wave inversions V1, V2 CHEST PAIN R/O ACS. Risk factors: HTN, hyperlipidemia, tobacco use -Monitor Vitals -Repeat EKG in am -Will trend troponin -Echo -lipid panel in am, continue statin -ASA -Nitro prn CP and repeat EKG for CP -Cardiology consult appreciate recommendations (2) Hypoxia: Reported oxygen sats down to 87% on RA while in ER. Currently on 2L oxygen NC with sats mid 90's. Pt with diffuse wheezing on exam. May be secondary to COPD -negative D-Dimer -duonebs -monitor (3) COPD (chronic obstructive pulmonary disease): Hx COPD. Current diffuse wheezing -duonebs (4) Hyperglycemia: Random glucose: 160. No hx DM -A1c in AM -Novolog sliding scale per protocol (5) HTN (hypertension): In ER BP's: 129/72, 108/56 -will hold home lisinopril and recheck in am (6) Dyslipidemia: -continue statin (7) Depression with anxiety: Stable -continue sertraline (8) GERD (gastroesophageal reflux disease): -continue PPI (9) Tobacco use: -smoking cessation encouraged -pt denies nicotine patch (10) Insomnia: -continue trazodone HS DVT Prophylaxis -Lovenox SQ DNR/DNI as per discussion with pt Follows with Dr Joselyn Marques for routine care Pt was seen with Dr Trevino. See addendum History of Present Illness Chief Complaint: CP Primary Care Provider: Joselyn Marques Pt is 67 y/o F with PMH HTN, dyslipidemia, GERD, depression, anxiety, COPD, tobacco use presented to ER with c/o CP. Pt states this morning woke up with some mild anterior chest pressure but went on with her day. 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 Was given ASA, nitro x 1 and zofran by EMS with resolution of CP and symptoms. Reports some CINTRON after nitro but otherwise feels back to baseline. Denies hx CP or cardiac workup in past. Other than episode of SOB with the CP earlier denies any SOB. Hasn't had to use her albuterol inhaler. Denies fever/chills, V/D/C, CINTRON, dizziness, syncope, vision changes, orthopnea, palpitations, cough, sore throat, choking, otalgia, rhinorrhea, abdominal pain, paresthesias, weakness, extremity edema, extremity erythema or pain, rashes, urinary symptoms. Denies hx DVT/PE, recent immobilization or injury/surgery. FH: CAD with mother - had CABG, unsure of age of onset Allergies Allergy/AdvReac Type Severity Reaction Status Date / Time No Known Allergies Allergy Unknown Verified 06/15/18 14:09 Home Medications Home Medications Medication Instructions Recorded Confirmed Type albuterol sulfate [Ventolin HFA] 2 puff INHALATION Q6H PRN 06/15/18 06/15/18 History aspirin [Aspir-81] 81 mg PO DAILY 06/15/18 06/15/18 History atorvastatin 40 mg PO DAILY 06/15/18 06/15/18 History lisinopril 2.5 mg PO DAILY 06/15/18 06/15/18 History multivitamin 1 tab PO DAILY 06/15/18 06/15/18 History omeprazole 40 mg PO DAILY 06/15/18 06/15/18 History sertraline 50 mg PO DAILY 06/15/18 06/15/18 History trazodone 50 mg PO HS 06/15/18 06/15/18 History Past Med/Surg History Medical History Insomnia (Chronic) COPD (chronic obstructive pulmonary disease) (Chronic) Tobacco use (Chronic) Depression with anxiety (Chronic) Dyslipidemia (Chronic) HTN (hypertension) (Chronic) GERD (gastroesophageal reflux disease) (Chronic) Surgical History Hx of tonsillectomy (Resolved) History of appendectomy (Resolved) H/O: hysterectomy (Resolved) Social History Preferred Language: Senegalese Communication Ability: Effective Chemist Physical Required: No Beliefs That Will Affect Care: None Current Living Situation: Alone Other Information That Helps Us Care for You: No Feels Safe at Home: Yes Safety Concerns: Feels Safe At This Time Smoking Status: Current every day smoker Hx Alcohol Use: No Hx Substance Use: No Review of Systems All systems reviewed & are unremarkable except as noted in HPI & below Physical Exam Vital Signs (Past 24 Hours): Last Vital Signs Temp 36.7 C 06/15/18 13:41 Pulse 70 06/15/18 16:20 Resp 18 06/15/18 16:20 BP 117/55 L 06/15/18 16:20 Pulse Ox 94 06/15/18 16:20 Physical Exam: General: no distress, WDWN Head: normocephalic, atraumatic Eyes: PERRL, EOM's intact, conjunctiva non-injected, anicteric ENT: normal inspection external ears, nose, mucous membranes moist Neck: supple, trachea midline Lungs: no respiratory distress, Currently on 2L oxygen NC with sat 96%, + scattered wheezing, no rhonchi/rales CV: RRR, no murmur, no pretibial edema Abd: normal BS, soft, non-tender Ext: no cyanosis, no calf tenderness, ROM extremities intact Neuro: A&O x 3, no focal deficits noted, normal affect Skin: warm, dry Results & Data Laboratory Results Short CBC 06/15/18 Range/Units 13:30 WBC 10.66 (4.8-10.8) K/uL Hgb 13.5 (12.0-16.0) g/dL Hct 40.1 (37-47) % Plt Count 275 (130-400) K/uL BMP 06/15/18 13:30 Sodium 138 Potassium 3.5 Chloride 106 Carbon Dioxide 21 BUN 13 Creatinine 0.72 Glucose 160 H Calcium 8.4 L Cardiac Enzymes 06/15/18 Range/Units 13:30 Troponin I < 0.015 (0-0.045) ng/ml Liver Function 06/15/18 Range/Units 13:30 Total Bilirubin 0.5 (0.2-1) mg/dl AST 16 (15-37) U/L ALT 21 (12-78) U/L Alkaline Phosphatase 94 (45-117) U/L Albumin 3.5 (3.4-5.0) gm/dl Diagnostic Findings CXR: IMPRESSION: Negative chest. ECG Rate (beats per minute): 82 Rhythm: normal sinus Findings: + T-wave inversion (V1, V2. ) Change: no significant change (Compared to EKG 08/19/16, T wave inversions also noted in V1, V2) Supervising Physician Co-Signing Physician Notes Attending Addendum: care coordinated with HILLARY Hammond please refer to her notes for full details, I agree with her notes patient seen and examined, records reviewed by myself as well on exam, patient seen sitting up in bed, chest pain free also denies dyspnea, nausea, dizziness no other symptoms VS noted and reviewed oriented x3, not in distress, speaks in sentences with no effort nor accessory muscle use normal rate, regular rhythm, no murmurs clear breath sounds bilaterally non distended, soft, nontender no bipedal edema, erythema, warmth no neuro deficits WBC 10.6 Hg 13.5 Crea 0.72 ASSESSMENT AND PLAN CHEST PAIN R/O ACS, UNSTABLE ANGINA serial trop echo continue ASA, Statin Cardiology consult for possible stress test given strong risk factors for CAD including family history, smoking, HTN, HLD HTN BP stable EPISODE OF HYPOXIA now with O2 sats of 94% on room air breathing is at baseline as per patient likely from component of COPD will monitor closely other diagnoses and plan of care as per HILLARY Hammond notes Otis Trevino MD
--- NOTE | 2018-06-15 17:18 | Emergency Department Note ---
Entered by Chris Bailey acting as a scribe for Josué Ott DO History of Present Illness General Chief complaint: Chest Pain Stated complaint: sob/chest pain Source: patient History of Present Illness Onset (ago): hour(s) (10:00 this morning) Location: chest Radiation: neck Pain Consistency: + now resolved Quality: + other (pressure) Relieved By: + medication (nitro) Associated symptoms: + shortness of breath and + other (denies urinary symptoms) The patient is a 67 year old female who presents to the Emergency Room with complaints of currently resolved chest pressure beginning this morning. 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 She states that it started worsening around 13:00, and she became short of breath around that time. She notes that there was some radiation to the neck. She reports that she was given nitro prior to arrival that improved her symptoms, stating that she does not currently have any pain. She states that she was temporarily nauseous but denies vomiting. She denies jaw pain, arm pain, or urinary symptoms. She states that she did not try resting after the onset of her symptoms. She denies a history of these symptoms, high cholesterol, diabetes, or heart attacks. She states that she takes medications for hypertension. Home Medications Home Medications Medication Instructions Recorded Confirmed Type albuterol sulfate [Ventolin HFA] 2 puff INHALATION Q6H PRN 06/15/18 06/15/18 History aspirin [Aspir-81] 81 mg PO DAILY 06/15/18 06/15/18 History atorvastatin 40 mg PO DAILY 06/15/18 06/15/18 History lisinopril 2.5 mg PO DAILY 06/15/18 06/15/18 History multivitamin 1 tab PO DAILY 06/15/18 06/15/18 History omeprazole 40 mg PO DAILY 06/15/18 06/15/18 History sertraline 50 mg PO DAILY 06/15/18 06/15/18 History trazodone 50 mg PO HS 06/15/18 06/15/18 History Allergies Allergy/AdvReac Type Severity Reaction Status Date / Time No Known Allergies Allergy Unknown Verified 06/15/18 14:09 Past Med/Surg History Medical History Insomnia (Chronic) COPD (chronic obstructive pulmonary disease) (Chronic) Tobacco use (Chronic) Depression with anxiety (Chronic) Dyslipidemia (Chronic) HTN (hypertension) (Chronic) GERD (gastroesophageal reflux disease) (Chronic) Surgical History Hx of tonsillectomy (Resolved) History of appendectomy (Resolved) H/O: hysterectomy (Resolved) Social History Preferred Language: Tajik Communication Ability: Effective Fly Worker Required: No Beliefs That Will Affect Care: None Current Living Situation: Alone Other Information That Helps Us Care for You: No Feels Safe at Home: Yes Safety Concerns: Feels Safe At This Time Smoking Status: Current every day smoker Hx Alcohol Use: No Hx Substance Use: No Review of Systems See HPI for pertinent positives & negatives. and A total of 10 systems reviewed and were otherwise negative Physical Exam Vital Signs Vital Signs - 24 hr 06/15/18 13:41 06/15/18 14:01 06/15/18 15:08 Temperature 36.7 C Temperature Source Oral Sepsis Recent Fever Within 48 Hours No Sepsis New/Unexplained Change in Mental Status No Sepsis Action Taken by Nursing No Action Required Pulse Rate 82 76 Pulse Rate [Apical] 66 Respiratory Rate 20 18 18 Blood Pressure 129/72 Blood Pressure [Left Arm] 108/56 L Blood Pressure Mean 91 Blood Pressure Mean [Left Arm] 73 Blood Pressure Position Lying Pulse Oximetry 95 97 96 Oxygen Delivery Method Room Air Room Air Nasal Cannula Oxygen Flow Rate 2 06/15/18 16:20 Temperature Temperature Source Sepsis Recent Fever Within 48 Hours Sepsis New/Unexplained Change in Mental Status Sepsis Action Taken by Nursing Pulse Rate 70 Pulse Rate [Apical] Respiratory Rate 18 Blood Pressure 117/55 L Blood Pressure [Left Arm] Blood Pressure Mean Blood Pressure Mean [Left Arm] Blood Pressure Position Pulse Oximetry 94 Oxygen Delivery Method Room Air Oxygen Flow Rate GENERAL: Sitting up in bed, alert, well appearing, well nourished, no distress, non-toxic EYE EXAM: normal conjunctiva. OROPHARYNX: no exudate, no erythema, lips, buccal mucosa, and tongue normal and mucous membranes are moist NECK: supple, no nuchal rigidity, no adenopathy, non-tender LUNGS: Clear to auscultation. Normal chest wall mechanics HEART: no murmurs, S1 normal and S2 normal ABDOMEN: abdomen soft, non-tender, normo-active bowel, sounds, no masses, no rebound or guarding. BACK: Back is symmetrical on inspection and there is no deformity, no midline tenderness, no CVA tenderness. SKIN: no rashes and no bruising UPPER EXTREMITIES: upper extremities are grossly normal. Radial pulses equal bilaterally. LOWER EXTREMITIES: No pitting edema. Calves equal bilaterally. NEURO EXAM: Normal sensorium, cranial nerves II-XII grossly intact, normal speech, no gross weakness of arms, no gross weakness of legs. Gross sensation intact. Course ED COURSE: Vital signs were reviewed and were normal The patients medical record was reviewed The above diagnostic studies were performed and reviewed. ED treatments and interventions as stated above. 1355: The patient was evaluated in room C7. A complete history and physical examination was performed. 1438: I consulted Melissa Drake PA-C: Zoina Jaffeist. The patient will be reevaluated for hospitalization. 1444: I updated the patient on results and plan. Based on the patients age, coexisting illnesses, exam and lab findings the decision to treat as an inpatient was made. The patient remained stable while under my care. The patient will be evaluated for further management. Consultations Consultation #1: I consulted Melissa Drake PA-C: Zonia Hospitalist. The patient will be reevaluated for hospitalization. Time: 14:38 Administered Medications Discontinued Medications Acetaminophen (Tylenol) 650 mg PO NOW STA Stop: 06/15/18 15:23 Last Admin: 06/15/18 15:38 Dose: 650 mg Documented by: [id number] Acetaminophen (Tylenol) Confirm Administered Dose 650 mg .ROUTE .STK-MED ONE Stop: 06/15/18 15:38 Last Admin: 06/15/18 15:39 Dose: Not Given Documented by: [id number] Medical Decision Making Differential Diagnosis Differential diagnoses includes but is not limited to acute coronary syndrome, myocardial infarction, pericarditis, pulmonary embolus, aortic dissection, pneumonia, pneumothorax, musculoskeletal, shingles, esophageal. Medical Records Attestation: I reviewed the patient's medical records. Home Medications Current Medication List: was personally reviewed by me Laboratory Data Attestation: I reviewed the patient's lab results. Result diagrams: 06/15/18 13:30 06/15/18 13:30 Lab Results 06/15/18 06/15/18 06/15/18 Range/Units 13:30 13:30 13:30 WBC 10.66 (4.8-10.8) K/uL RBC 4.51 (4.2-5.4) M/uL Hgb 13.5 (12.0-16.0) g/dL Hct 40.1 (37-47) % MCV 88.9 (80-100) fL MCH 29.9 (25-34) pg MCHC 33.7 (32-36) g/dL RDW Std Deviation 45.4 (36.4-46.3) fL RDW Coeff of Shaheen 14.0 (11.5-14.5) % Plt Count 275 (130-400) K/uL MPV 10.3 (7.4-10.4) fL Immature Gran % (Auto) 0.3 % Neut % (Auto) 74.6 % Lymph % (Auto) 17.4 % Irwin % (Auto) 6.2 % Eos % (Auto) 1.3 % Baso % (Auto) 0.2 % Immature Gran # (Auto) 0.03 H (0.00-0.02) K/uL Neut # (Auto) 7.95 H (1.4-6.5) K/uL Lymph # (Auto) 1.86 (1.2-3.4) K/uL Irwin # (Auto) 0.66 H (0.11-0.59) K/uL Eos # (Auto) 0.14 (0-0.5) K/uL Baso # (Auto) 0.02 (0-0.2) K/uL D-Dimer 390 (0-500) ug/L FEU Sodium 138 (136-145) mmol/L Potassium 3.5 (3.5-5.1) mmol/L Chloride 106 (98-107) mmol/L Carbon Dioxide 21 (21-32) mmol/L Anion Gap 11.0 (3-11) BUN 13 (7-18) mg/dl Creatinine 0.72 (0.6-1.2) mg/dl Est Cr Clr Drug Dosing 81.2 ml/min Est GFR ( Amer) 101.1 Est GFR (Non-Af Amer) 87.3 BUN/Creatinine Ratio 17.5 (10-20) Glucose 160 H (70-99) mg/dl Calcium 8.4 L (8.5-10.1) mg/dl Total Bilirubin 0.5 (0.2-1) mg/dl AST 16 (15-37) U/L ALT 21 (12-78) U/L Alkaline Phosphatase 94 (45-117) U/L Troponin I < 0.015 (0-0.045) ng/ml Total Protein 6.5 (6.4-8.2) gm/dl Albumin 3.5 (3.4-5.0) gm/dl Globulin 3.0 (2.5-4.0) gm/dl Albumin/Globulin Ratio 1.2 (0.9-2) Lipase 72 L (73-393) U/L Imaging Data Radiologist's Impression: Radiology results as stated below per my review and the radiologist's interpretation: XR chest 1V portable CLINICAL HISTORY: Chest Pain dyspnea COMPARISON STUDY: 08/19/2016 FINDINGS: The bones soft tissues and hemidiaphragms are normal. The cardiomediastinal silhouette is normal. The lungs are clear. The pulmonary vasculature is normal. IMPRESSION: Negative chest. The above report was generated using voice recognition software. It may contain grammatical, syntax or spelling errors. Electronically signed by: Luis E Brown M.D. 06/15/2018 2:02 PM ECG Data Attestation: I personally reviewed and interpreted this ECG as follows: Indication: chest pain Rate (beats per minute): 82 Rhythm: sinus rhythm Findings: + other (normal axis) and + T-wave inversion (septal leads); no PVC Blood Pressure Blood Pressure Findings: Normal blood pressure Blood Pressure Disposition: did not require urgent referral MDM Narrative Patient is a 67-year-old female who presents the ER for exertion and all chest pain described as a pressure associate with shortness of breath and nausea. Symptoms were completely resolved with nitro and aspirin. EKG was unremarkable. Labs were obtained and showed no significant leukocytosis or anemia. D-dimer was negative. BMP along with LFTs bilirubin troponin was normal. Lipase was normal. Chest x-ray was unremarkable. Patient was updated bedside and admitted to the hospitalist for further workup. Impression & Plan Precordial chest pain Discharge Plan Visit Data *Final* Discharge Date/Time: 06/15/18 16:20 Chief Complaint: Chest Pain Stated Complaint: sob/chest pain ED Provider: Josué Ott Discharge Problem: Precordial chest pain Patient Disposition: Admitted As Inpatient Discharge Instructions Interventions: ED Discharge Assessment Last Done: 06/15/18 16:20 The scribe's documentation has been prepared under my direction and personally reviewed by me in its entirety. I confirm that the note above accurately reflects all work, treatment, procedures, and medical decision making performed by me.
[2018-06-15 17:34] LABS: Prothrombin Time 9.9 Seconds (9.0-12.0)
[2018-06-15] MEDS: ALBUT/IPRATROP 3MG/0.5MG NEB 3 ML VIAL NEB SCH ×2 (17:51→19:35)
[2018-06-15] MEDS: INSULIN ASPART 100 UNITS/ML 3 ML PEN SC SCH ×2 (17:52→20:32)
[2018-06-15] MEDS: ENOXAPARIN INJ 40 MG/0.4 ML SYR SQ SCH (19:51)
[2018-06-15] MEDS: TRAZODONE HCL 50 MG TAB PO SCH (21:53)
[2018-06-16 05:59] LABS: Hematocrit (blood only) 39.3 % (37-47); Hemoglobin 12.9 g/dL (12.0-16.0); Mean Corpuscular Hgb Conc 32.8 g/dL (32-36); Mean Corpuscular Volume 90.1 fL (80-100); Mean Platelet Volume 9.7 fL (7.4-10.4); Platelet Count 232 K/uL (130-400); RDW Coefficient of Variation 13.9 % (11.5-14.5); RDW Standard Deviation 46.4 fL (36.4-46.3); Red Blood Count 4.36 M/uL (4.2-5.4); White Blood Count 9.58 K/uL (4.8-10.8)
[2018-06-16 07:20] LABS: BUN Creatinine Ratio 23.9 (10-20); Calcium 8.2 mg/dl (8.5-10.1); Creatinine Clr Calc Pharmacy 108.6 ml/min; Est GFR (Non-African American) 98.3; Potassium 4.1 mmol/L (3.5-5.1)
[2018-06-16] MEDS: ALBUT/IPRATROP 3MG/0.5MG NEB 3 ML VIAL NEB SCH ×4 (07:30→19:34)
--- NOTE | 2018-06-16 09:10 | Cardiology Consultation ---
Date of Consultation June 16, 2018 Assessment & Plan (1) Precordial chest pain: Exercise stress echocardiography will be performed in the a.m. 06/17/18 for further evaluation of chest discomfort. Continue to monitor telemetry. Continue aspirin, statin, and CHILANGO inhibitor. Cardiac enzymes negative x3 sets. (2) Dyslipidemia: Continue statin therapy. (3) HTN (hypertension): Controlled at this time. We will continue to monitor. No medication changes at this time. (4) Tobacco use: Smoking cessation advised. History of Present Illness Reason for Consultation: Chest pain Requesting Physician: Dr. Trevino Attending Physician: Otis Trevino MD History of Present Illness 67-year-old female presented to the emergency department with an episode of chest pain. 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 Developed substernal chest discomfort described as a pressure. She became short of breath and diaphoretic. EMS was summoned and she was treated with sublingual nitro spray. Symptoms resolved however she developed a migraine headache. Upon arrival to the ER patient pain-free. ECG within normal limits. Troponins are negative. Resting 2D transthoracic echocardiogram demonstrate normal wall motion. Patient denies previous episodes of chest discomfort. No recent change in functional capacity or dyspnea on exertion. Denies orthopnea, PND, palpitations, lightheadedness, dizziness, syncope, or near syncope. Currently pain-free and requesting discharge. Offers no other concerns/complaints at this time. Allergies Allergy/AdvReac Type Severity Reaction Status Date / Time No Known Allergies Allergy Unknown Verified 06/15/18 14:09 Home Medications Home Medications Medication Instructions Recorded Confirmed Type albuterol sulfate [Ventolin HFA] 2 puff INHALATION Q6H PRN 06/15/18 06/15/18 History aspirin [Aspir-81] 81 mg PO DAILY 06/15/18 06/15/18 History atorvastatin 40 mg PO DAILY 06/15/18 06/15/18 History lisinopril 2.5 mg PO DAILY 06/15/18 06/15/18 History multivitamin 1 tab PO DAILY 06/15/18 06/15/18 History omeprazole 40 mg PO DAILY 06/15/18 06/15/18 History sertraline 50 mg PO DAILY 06/15/18 06/15/18 History trazodone 50 mg PO HS 06/15/18 06/15/18 History Patient History Medical History Insomnia (Chronic) COPD (chronic obstructive pulmonary disease) (Chronic) Tobacco use (Chronic) Depression with anxiety (Chronic) Dyslipidemia (Chronic) HTN (hypertension) (Chronic) GERD (gastroesophageal reflux disease) (Chronic) Surgical History Hx of tonsillectomy (Resolved) History of appendectomy (Resolved) H/O: hysterectomy (Resolved) Family History Other CAD (coronary artery disease) Social History Preferred Language: Polish Communication Ability: Effective Blueprint Developer Required: No Beliefs That Will Affect Care: None Current Living Situation: Alone Other Information That Helps Us Care for You: No Feels Safe at Home: Yes Safety Concerns: Feels Safe At This Time Smoking Status: Current every day smoker Hx Alcohol Use: No Hx Substance Use: No Review of Systems Pertinent positives noted per HPI, comprehensive 10 system review is otherwise negative. Physical Exam Vital Signs (Past 24 Hours): Last Vital Signs Temp 36.6 C 06/16/18 07:44 Pulse 60 06/16/18 07:44 Resp 18 06/16/18 07:44 BP 138/68 06/16/18 07:44 Pulse Ox 90 06/16/18 07:44 Physical Exam: General: NAD, AAO x3, well nourished. HEENT: Normocephalic. Atraumatic. Conjunctiva pink, no scleral icterus. Neck: No carotid bruits, the carotid upstrokes are brisk. No JVD. No HJR Heart: Regular normal S-1 and S-2 no S-3 or S-4 gallop. No murmurs or rub appreciated. PMI is not displaced. No RV heave. Lungs: Clear bilateral without rales , rhonchi, or wheeze. Abdomen: Normal bowel sounds. Soft. Nontender. No masses or organomegaly. No abdominal bruits. Extremities: No clubbing, cyanosis, or edema. Pulses: radial=2/4, Dorsalis pedis =2/4, posterior tibial=2/4. Neuro: Cranial nerves grossly intact. No focal motor deficit. (1) HTN (hypertension) Hypertension type: essential hypertension Qualified Code(s): I10 - Essential (primary) hypertension
[2018-06-16] MEDS: INSULIN ASPART 100 UNITS/ML 3 ML PEN SC SCH ×4 (10:05→21:52)
[2018-06-16] MEDS: ASPIRIN 81 MG ECTAB PO SCH (10:06)
[2018-06-16] MEDS: MULTIVITAMIN TAB PO SCH (10:06)
[2018-06-16] MEDS: PANTOprazole 40 MG TAB PO SCH (10:06)
[2018-06-16] MEDS: ATORVASTATIN 40 MG TAB PO SCH (10:06)
[2018-06-16] MEDS: SERTRALINE HCL 50 MG TABLET PO SCH (10:06)
[2018-06-16] MEDS: NICOTINE 14 MG/24 HR PATCH TD SCH (12:57)
[2018-06-16] MEDS: ENOXAPARIN INJ 40 MG/0.4 ML SYR SQ SCH (17:25)
--- NOTE | 2018-06-16 17:55 | Hospitalist Progress Note ---
Date of Service June 16, 2018 Assessment & Plan (1) Precordial chest pain: per HILLARY Willams S notes Pt presented with reported anterior chest pressure this morning and increased anterior CP with radiation to L neck with SOB, diaphoresis and nauesa today while moving cribs. Received ASA, nitro x 1 and zofran by EMS with resolution of CP. No further CP while in ER. In ER vitals stable, afebrile, no leukocytosis. negative initial troponin. CXR: no acute changes. EKG NSR, chronic T wave inversions V1, V2 CHEST PAIN R/O ACS. Risk factors: HTN, hyperlipidemia, tobacco use Troponins x3- EKG no signs of acute ischemia Echo no wall motion abnormalities Chest pain-free today Cardiology consulted Plan for stress test tomorrow Continue aspirin statin lisinopril (2) Hypoxia: Reported oxygen sats down to 87% on RA while in ER. Currently on 2L oxygen NC with sats mid 90's. Pt with diffuse wheezing on exam. May be secondary to COPD -negative D-Dimer -duonebs (3) COPD (chronic obstructive pulmonary disease): Hx COPD. Improved -duonebs ordered (4) Hyperglycemia: Random glucose: 160. No hx DM -A1c pending -Novolog sliding scale per protocol (5) HTN (hypertension): In ER BP's: 129/72, 108/56 VS stable (6) Dyslipidemia: -continue statin (7) Depression with anxiety: Stable -continue sertraline (8) GERD (gastroesophageal reflux disease): -continue PPI (9) Tobacco use: -smoking cessation encouraged -pt denies nicotine patch (10) Insomnia: -continue trazodone HS DVT Prophylaxis -Lovenox SQ DNR/DNI as per discussion with pt Follows with Dr Joselyn Marques for routine care Disposition Expecting discharge to home when cleared by cardiology service tomorrow Subjective Follow-up for chest pain Seen sitting up in bed, comfortable, not in distress No recurrence of chest pain while admitted Denies dizziness, shortness of breath, palpitations No other symptoms Physical Exam Vital Signs (Past 24 Hours): Last Vital Signs Temp 36.6 C 06/16/18 15:16 Pulse 71 06/16/18 16:20 Resp 17 06/16/18 15:16 BP 123/69 06/16/18 15:16 Pulse Ox 91 06/16/18 15:16 Physical Exam: General- oriented x 3, not in distress, speaks in sentences with no effort or accessory muscle use Eyes- anicteric Neck- no JVD Lungs- clear breath sounds bilaterally, no rales/wheezes Heart- normal rate, regular rhythm; no murmurs Abdomen- normal bowel sounds, nondistended, soft, nontender Extremities- no pretibial edema, no calf tenderness Neuro- alert, oriented x 3; no gross focal neurologic deficits Skin- warm & dry Results & Data Laboratory Results Laboratory Results - last 24 hr 06/15/18 06/15/18 06/16/18 18:48 20:21 01:09 WBC RBC Hgb Hct MCV MCH MCHC RDW Std Deviation RDW Coeff of Shaheen Plt Count MPV Sodium Potassium Chloride Carbon Dioxide Anion Gap BUN Creatinine Est Cr Clr Drug Dosing Est GFR ( Amer) Est GFR (Non-Af Amer) BUN/Creatinine Ratio Glucose POC Glucose 157 H Calcium Troponin I < 0.015 < 0.015 Triglycerides Cholesterol LDL Cholesterol, Calc VLDL Cholesterol, Calc HDL Cholesterol Cholesterol/HDL Ratio 06/16/18 06/16/18 06/16/18 05:33 05:33 07:31 WBC 9.58 RBC 4.36 Hgb 12.9 Hct 39.3 MCV 90.1 MCH 29.6 MCHC 32.8 RDW Std Deviation 46.4 H RDW Coeff of Shaheen 13.9 Plt Count 232 MPV 9.7 Sodium 139 Potassium 4.1 D Chloride 106 Carbon Dioxide 27 Anion Gap 7.0 BUN 13 Creatinine 0.54 L Est Cr Clr Drug Dosing 108.6 Est GFR ( Amer) 114.0 Est GFR (Non-Af Amer) 98.3 BUN/Creatinine Ratio 23.9 H Glucose 121 H POC Glucose 129 H Calcium 8.2 L Troponin I Triglycerides 64 Cholesterol 134 LDL Cholesterol, Calc 72 VLDL Cholesterol, Calc 13 HDL Cholesterol 49 Cholesterol/HDL Ratio 3 06/16/18 06/16/18 11:35 16:28 WBC RBC Hgb Hct MCV MCH MCHC RDW Std Deviation RDW Coeff of Shaheen Plt Count MPV Sodium Potassium Chloride Carbon Dioxide Anion Gap BUN Creatinine Est Cr Clr Drug Dosing Est GFR ( Amer) Est GFR (Non-Af Amer) BUN/Creatinine Ratio Glucose POC Glucose 112 H 114 H Calcium Troponin I Triglycerides Cholesterol LDL Cholesterol, Calc VLDL Cholesterol, Calc HDL Cholesterol Cholesterol/HDL Ratio (1) HTN (hypertension) Hypertension type: essential hypertension Qualified Code(s): I10 - Essential (primary) hypertension
[2018-06-16] MEDS: TRAZODONE HCL 50 MG TAB PO SCH (21:52)
[2018-06-17 06:46] LABS: Estimated Average Glucose 128 mg/dl; Hemoglobin A1C 6.1 % (4.5-5.6)
[2018-06-17] MEDS: ALBUT/IPRATROP 3MG/0.5MG NEB 3 ML VIAL NEB SCH ×2 (06:59→11:18)
[2018-06-17] MEDS: SERTRALINE HCL 50 MG TABLET PO SCH (08:44)
[2018-06-17] MEDS: ATORVASTATIN 40 MG TAB PO SCH (08:44)
[2018-06-17] MEDS: MULTIVITAMIN TAB PO SCH (08:45)
[2018-06-17] MEDS: ASPIRIN 81 MG ECTAB PO SCH (08:45)
[2018-06-17] MEDS: PANTOprazole 40 MG TAB PO SCH (08:45)
[2018-06-17] MEDS: INSULIN ASPART 100 UNITS/ML 3 ML PEN SC SCH ×2 (08:46→12:47)
[2018-06-17] MEDS: NICOTINE 14 MG/24 HR PATCH TD SCH (08:46)
[2018-06-17] MEDS ORDERED: PERFLUTREN LIPID MICROSPHERE (DEFINITY) IV ONE (09:56)
--- NOTE | 2018-06-17 13:49 | Hospitalist Progress Note ---
Date of Service June 17, 2018 delayed entry date of service as noted above Assessment & Plan (1) Precordial chest pain: ACS ruled out Troponins x3 negative EKG no signs of acute ischemia Echo no wall motion abnormalities D dimer negative Cardiology consulted exercise stress test: negative Continue aspirin statin lisinopril (2) Hypoxia: Reported oxygen sats down to 87% on RA while in ER. Currently on 2L oxygen [place] with sats mid 90's. Pt with diffuse wheezing on exam. May be secondary to COPD -negative D-Dimer -duonebs given - resolved (3) COPD (chronic obstructive pulmonary disease): Hx COPD. - not in exacerbation (4) Hyperglycemia: Random glucose: 160. No hx DM -A1c 6.1 -Novolog sliding scale per protocol (5) HTN (hypertension): BP stable monitor (6) Dyslipidemia: -continue statin (7) Depression with anxiety: Stable -continue sertraline (8) GERD (gastroesophageal reflux disease): -continue PPI (9) Tobacco use: -smoking cessation encouraged (10) Insomnia: -continue trazodone HS DVT Prophylaxis -Lovenox SQ Disposition dc home ff up with PCP as outlined in DC instructions Subjective Follow-up for chest pain resting in bed, comfortable s/p stress test no chest pain since admission no dyspnea, dizziness, nausea no other symptoms Physical Exam Vital Signs (Past 24 Hours): Last Vital Signs Temp 36.7 C 06/17/18 12:23 Pulse 75 06/17/18 12:23 Resp 14 06/17/18 12:23 BP 134/68 06/17/18 12:23 Pulse Ox 97 06/17/18 12:23 Physical Exam: General- oriented x 3, not in distress, speaks in sentences with no effort or accessory muscle use Eyes- anicteric Neck- no JVD Lungs- clear breath sounds bilaterally Heart- normal rate, regular rhythm; no murmurs Abdomen- normal bowel sounds, nondistended, soft, nontender Extremities- no pretibial edema, no calf tenderness Neuro- alert, oriented x 3; no gross focal neurologic deficits Skin- warm & dry (1) HTN (hypertension) Hypertension type: essential hypertension Qualified Code(s): I10 - Essential (primary) hypertension
--- NOTE | 2018-06-18 08:41 | Discharge Summary ---
Date of Service June 20, 2018 Admission HPI Per Admitting Provider Pt is 67 y/o F with PMH HTN, dyslipidemia, GERD, depression, anxiety, COPD, tobacco use presented to ER with c/o CP. Pt states this morning woke up with some mild anterior chest pressure but went on with her day. 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 Was given ASA, nitro x 1 and zofran by EMS with resolution of CP and symptoms. Reports some CINTRON after nitro but otherwise feels back to baseline. Denies hx CP or cardiac workup in past. Other than episode of SOB with the CP lupe will denies any SOB. Hasn't had to use her albuterol inhaler. Denies fever/chills, V/D/C, CINTRON, dizziness, syncope, vision changes, orthopnea, palpitations, cough, sore throat, choking, otalgia, rhinorrhea, abdominal pain, paresthesias, weakness, extremity edema, extremity erythema or pain, rashes, urinary symptoms. Denies hx DVT/PE, recent immobilization or injury/surgery. FH: CAD with mother - had CABG, unsure of age of onset Discharge Data Consultations 06/15/18 14:39 ED Decision to Admit Stat 06/15/18 16:54 Consult Cardiology Routine
--- NOTE | 2018-06-19 21:46 | Discharge Summary ---
Date of Service June 19, 2018 Admission HPI Per Admitting Provider Pt is 67 y/o F with PMH HTN, dyslipidemia, GERD, depression, anxiety, COPD, tobacco use presented to ER with c/o CP. Pt states this morning woke up with some mild anterior chest pressure but went on with her day. 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 Was given ASA, nitro x 1 and zofran by EMS with resolution of CP and symptoms. Reports some CINTRON after nitro but otherwise feels back to baseline. Denies hx CP or cardiac workup in past. Other than episode of SOB with the CP lupe will denies any SOB. Hasn't had to use her albuterol inhaler. Denies fever/chills, V/D/C, CINTRON, dizziness, syncope, vision changes, orthopnea, palpitations, cough, sore throat, choking, otalgia, rhinorrhea, abdominal pain, paresthesias, weakness, extremity edema, extremity erythema or pain, rashes, urinary symptoms. Denies hx DVT/PE, recent immobilization or injury/surgery. FH: CAD with mother - had CABG, unsure of age of onset Admission Exam Per Admitting Provider Vital Signs (Past 24 Hours): Last Vital Signs Temp 36.7 C 06/15/18 13:41 Pulse 70 06/15/18 16:20 Resp 18 06/15/18 16:20 BP 117/55 L 06/15/18 16:20 Pulse Ox 94 06/15/18 16:20 Physical Exam: General: no distress, WDWN Head: normocephalic, atraumatic Eyes: PERRL, EOM's intact, conjunctiva non-injected, anicteric ENT: normal inspection external ears, nose, mucous membranes moist Neck: supple, trachea midline Lungs: no respiratory distress, Currently on 2L oxygen [place] with sat 96%, + scattered wheezing, no rhonchi/rales CV: RRR, no murmur, no pretibial edema Abd: normal BS, soft, non-tender Ext: no cyanosis, no calf tenderness, ROM extremities intact Neuro: A&O x 3, no focal deficits noted, normal affect Skin: warm, dry Principal Diagnosis CHEST PAIN, ACUTE CORONARY SYNDROME RULED OUT Discharge Exam Vital Signs (Past 24 Hours): Last Vital Signs Temp 36.7 C 06/17/18 12:23 Pulse 75 06/17/18 12:23 Resp 14 06/17/18 12:23 BP 134/68 06/17/18 12:23 Pulse Ox 97 06/17/18 12:23 Physical Exam: General- oriented x 3, not in distress, speaks in sentences with no effort or accessory muscle use Eyes- anicteric Neck- no JVD Lungs- clear breath sounds bilaterally Heart- normal rate, regular rhythm; no murmurs Abdomen- normal bowel sounds, nondistended, soft, nontender Extremities- no pretibial edema, no calf tenderness Neuro- alert, oriented x 3; no gross focal neurologic deficits Skin- warm & dry Discharge Data Allergies Allergy/AdvReac Type Severity Reaction Status Date / Time No Known Allergies Allergy Unknown Verified 06/15/18 14:09 Consultations 06/15/18 14:39 ED Decision to Admit Stat 06/15/18 16:54 Consult Cardiology Routine Hospital Course (1) Precordial chest pain: ACS ruled out Troponins x3 negative EKG no signs of acute ischemia Echo no wall motion abnormalities D dimer negative Cardiology consulted Dr. Marques exercise stress test: negative Continue aspirin, statin, lisinopril (2) Hypoxia: Reported oxygen sats down to 87% on RA while in ER. Currently on 2L oxygen [place] with sats mid 90's. Pt with diffuse wheezing on exam. May be secondary to COPD - negative D-Dimer - duonebs given - resolved (3) COPD (chronic obstructive pulmonary disease): Hx COPD. - not in exacerbation (4) Hyperglycemia: Random glucose: 160. No hx DM -A1c 6.1 -Novolog sliding scale per protocol (5) HTN (hypertension): BP stable monitor (6) Dyslipidemia: -continue statin (7) Depression with anxiety: Stable -continue sertraline (8) GERD (gastroesophageal reflux disease): -continue PPI (9) Tobacco use: -smoking cessation encouraged (10) Insomnia: -continue trazodone HS DVT Prophylaxis -Lovenox SQ Disposition dc home ff up with PCP as outlined in DC instructions Total Time Total Time Spent Total Time Spent (In Minutes): 30 minutes Discharge Plan Discharge Items Patient Disposition: Home - Self-Care Reason For Visit: CP Discharge Diagnosis: Chest Pain Discharge Goals: Diagnostic testing and Therapeutic intervention Activity: As commented below Activity Comment: Resume activity gradually as tolerated Lifting: Wait until after follow-up appointment Exercise/Sports: Wait until after follow-up appointment Non-emergency contact: Primary Care Provider Call non-emergency contact if: you have any medication questions, your symptoms worsen, your pain is not controlled, your pain is worsening, your pain is unusual for you, your pain is concerning for you and you have a fever Follow-up/Referrals: Irineo Cline MD [Staff Physician] - 06/20/18 11:45 am Diet: Heart Healthy Addtl Provider Instructions: PLEASE CALL PRIMARY CARE PHYSICIAN OR RETURN TO ER IMMEDIATELY IF WITH RECURRENCE/WORSENING OF SYMPTOMS. FOLLOW UP WITH PRIMARY CARE PHYSICIAN NOTED ABOVE. Prescriptions: Continued omeprazole 40 mg capsule,delayed release(DR/EC) 40 mg PO DAILY RF: 0 lisinopril 5 mg tablet 2.5 mg PO DAILY RF: 0 albuterol sulfate [Ventolin HFA] 90 mcg/actuation Hfa Aerosol Inhaler 2 puff INHALATION Q6H PRN (Reason: Shortness Of Breath) RF: 0 multivitamin Tablet 1 tab PO DAILY RF: 0 aspirin [Aspir-81] 81 mg Tablet,Delayed Release (Dr/Ec) 81 mg PO DAILY RF: 0 sertraline 50 mg tablet 50 mg PO DAILY RF: 0 trazodone 50 mg tablet 50 mg PO HS RF: 0 atorvastatin 40 mg Tablet 40 mg PO DAILY RF: 0 Stand-Alone Forms: Call Back Authorization, [facility], Work/School Release (Inpt) Krames/Other Patient Handouts: Prediabetes, Diabetes Meal Planning Discharge Orders: Discharge Order (Routine); Ordered 06/17/18 Ordered By: Otis Trevino Admission Data Admit Date/Time: 06/15/18 15:36 Attending Provider: Otis Trevino Admit Provider: Otis Trevino Primary Care Provider: Joselyn Marques Other Providers: Otis Trevino ; Javad Marques Service: Telemetry Medical Other Interventions: Discharge Summary Assessment (RN) Last Done: 06/17/18 12:23 DC Date/Time DO NOT enter until pt leaves facility: 06/17/18 14:21
== END 2018-06-17 14:21 | disposition home or self-care (01) ==
LOC: 2N 13:33 → ED 13:33 → 2N 16:20